=== PATIENT | male | born 1945 ===

== ENCOUNTER → 2019-04-13 21:21 | Outpatient (ROUT) | payer OTHER, SELFPAY ==
[2019-04-13 22:06] LABS: Add Manual Diff / Slide Review NO; Basophils Absolute Auto 100 /uL (0-100); Basophils Percent Auto 1.1 % (0-2); Eosinophils Absolute Auto 200 /uL (0-450); Eosinophils Percent Auto 3.6 % (2-4); Hematocrit 46.6 % (41-53); Hemoglobin 15.9 g/dL (13.5-17.5); Lymphocytes Absolute Auto 1500 /uL (1100-4500); Lymphocytes Percent Auto 31.2 % (25-40); Mean Corpuscular HGB Conc 34.1 % (30-36); Mean Corpuscular Hemoglobin 32.9 PG (26-34); Mean Corpuscular Volume 96.4 fL (80-100); Monocytes Absolute Auto 500 /uL (0-900); Monocytes Percent Auto 9.9 % (3-14); Neutrophils Absolute Auto 2600 /uL (1500-7000); Neutrophils Percent Auto 54.2 % (50-75); Platelet Count 191 X10^3/uL (150-400); Red Blood Cell Count 4.84 X10^6/uL (4.5-5.9); Red Cell Distribution Width 13.5 % (11.6-14.8); White Blood Cell Count 4.7 X10^3/uL (4.5-11.0)
[2019-04-13 22:24] LABS: Alanine Aminotransferase 24 IU/L (21-72); Albumin 3.8 g/dL (3.5-5.0); Albumin Globulin Ratio 1.3 (1.0-2.8); Alkaline Phosphatase 69 U/L (38-126); Aspartate Aminotransferase 24 IU/L (17-59); Bilirubin Total 0.6 mg/dL (0.2-1.3); Blood Urea Nitrogen 25 mg/dL (9-20); Calcium 9.1 mg/dL (8.4-10.2); Carbon Dioxide 32 mmol/L (22-32); Chloride 102 mmol/L (98-107); Cholesterol 199 mg/dL (140-199); Estimated Glomerular Filt Rate > 60.0 mL/min (>60); Globulin 2.9 g/dL (1.7-4.1); Glucose 94 mg/dL (80-110); HDL Cholesterol 50 mg/dL (40-60); HEMOLYSIS < 15 (0-50); LDL Cholesterol Calculated 133 mg/dL (<100); Sodium 138 mmol/L (137-145); Total Protein 6.7 g/dL (6.3-8.2); Triglycerides 81 mg/dL (35-150)
[2019-04-13 22:56] LABS: TSH w/ Reflex to FT4 3.39 uIU/mL (0.47-4.68)
== END ==
PROVIDERS: Visit Provider Family Medicine
DX: Z00.00 Encounter for general adult medical examination without abnormal findings (principal); E78.5 Hyperlipidemia, unspecified; N40.1 Benign prostatic hyperplasia with lower urinary tract symptoms; Z79.899 Other long term (current) drug therapy
CPT/HCPCS: 36415; 80053; 80061; 84153; 84443; 85025

== ENCOUNTER → 2019-04-17 21:21 | Outpatient (ROUT) | payer OTHER, SELFPAY ==
[2019-04-17 21:24] LABS: Bacteria Urine None Seen; RBC Urine None Seen (0-5/HPF); WBC Urine None Seen (0-5/HPF)
[2019-04-17 22:39] LABS: Appearance Urine UA CLEAR; Bilirubin Urine UA NEGATIVE (NEGATIVE); Color Urine UA YELLOW; Glucose Urine UA NEGATIVE (Negative); Ketones Urine UA NEGATIVE (NEGATIVE); Leukocyte Esterase Urine UA NEGATIVE (NEGATIVE); Nitrite Urine UA NEGATIVE (Negative); Occult Blood Urine UA NEGATIVE (Negative); Protein Urine UA NEGATIVE (Negative); Specific Gravity Urine UA >=1.030 (1.000-1.035); Urobilinogen Urine UA 0.2 E.U./dL (0.2)
[2019-04-17 22:49] LABS: Culture Indicated Urine Cult Not Indicated; Urine Comments Microscopic Normal
[2019-04-17 22:52] LABS: HEMOLYSIS < 15 (0-50); Iron 139 ug/dL (49-181)
[2019-04-17 23:04] LABS: Percent Iron Saturation 45 % (20-50); Total Iron Binding Capacity 307 ug/dL (261-462); Transferrin 241 mg/dL (206-381)
[2019-04-17 23:13] LABS: Free T3, Triiodothyronine Free 3.74 pg/mL (2.77-5.27); Free T4, Direct Thyroxine 1.06 ng/dL (0.78-2.19)
[2019-04-17 23:26] LABS: Thyroid Stimulating Hormone 3.28 uIU/mL (0.47-4.68)
[2019-04-17 23:30] LABS: Cortisol Random 5.03 ug/dL
[2019-04-17 23:34] LABS: Ferritin 88.6 ng/mL (17.9-464)
[2019-04-18 00:04] LABS: Folate 19.9 ng/mL (2.76-20.0); Vitamin B12 647 pg/mL (239-931)
[2019-04-20 15:02] LABS: Thyroid Peroxidase Antibodies 1 IU/mL (< 9)
[2019-04-20 15:03] LABS: Anti Thyroglobulin Antibody < 1 IU/mL (< 2)
[2019-04-21 10:20] LABS: Triiodothyronine T3 Total 81 ng/dL (76-181)
[2019-04-21 14:45] LABS: Dehydroepiandrosterone Sulfate 52 mcg/dL (5-253)
== END ==
PROVIDERS: Visit Provider Family Medicine
DX: D50.9 Iron deficiency anemia, unspecified (principal); R53.83 Other fatigue
CPT/HCPCS: 36415; 81001; 82533; 82607; 82627; 82728; 82746; 83540; 83550; 84439; 84443; 84479; 84480; 84481; 86376; 86800